=== PATIENT | female | born 1970 | race Caucasian/White ===

== ENCOUNTER 2021-09-08 12:10 | Emergency (ER) | payer OTHER, SELFPAY ==
--- OUTSIDE RECORDS SUMMARY | 2021-09-08 12:12 | XMS REPORT | Continuity of Care Document ---
:1970 Author Organization [facility] t Address [address] [place] [address] [address]. [address] [place] [address] Care Team Providers Name Role Phone Unavailable Unavailable Unavailable Problems This patient has no known problems. Allergies, Adverse Reactions, Alerts This patient has no known allergies or adverse reactions. Medications This patient has no known medications. Procedures This patient has no known procedures. Encounters Start End Encounter Admission Attending Care Care Encounter Source Date/Time Date/Time Type Type Clinicians Facility Department ID 2021-09-05 2021-09-05 Outpatient [facility] [id number] 00:00:00 00:00:[address] Results This patient has no known results.
[2021-09-08] MEDS ORDERED: dexAMETHasone 10 MG/ML VIAL ONE (16:33)
[2021-09-08] MEDS ORDERED: ACETAMINOPHEN 500 MG TAB ONE (16:33)
[2021-09-08] MEDS ORDERED: BEBTELOVIMAB 175 MG/2 ML VIAL IV ONE (16:45)
--- NOTE | 2021-09-08 17:25 | ER ---
Nurse's Notes [facility] Name: Padmini Leon Age: 51 yrs Sex: Female : 1970 Arrival Date: 09/08/2021 Time: 12:14 Bed 15 Private MD: Diagnosis: SARS-associated coronavirus as the cause of diseases classified elsewhere Presentation: 09/08 14:34 Chief complaint: Patient states: Tested COVID POSITIVE x 3 days ago; cough, congestion, vg1 sore throat; was seen by PCP and was told to come to ED for antibodies . Coronavirus screen: Vaccine status: Patient reports being unvaccinated. Client denies travel out of the [place] in the last 14 days. Ebola Screen: Patient denies exposure to infectious person. Patient denies travel to an Ebola-affected area in the 21 days before illness onset. Initial Sepsis Screen: Does the patient meet any 2 criteria? No. Patient's initial sepsis screen is negative. Does the patient have a suspected source of infection? No. Patient's initial sepsis screen is negative. Risk Assessment: Do you want to hurt yourself or someone else? Patient reports no desire to harm self or others. Onset of symptoms was September 05, 2021. 14:34 Method Of Arrival: Ambulatory vg1 14:34 Acuity: BARTOLO 4 vg1 Triage Assessment: 14:35 General: Appears in no apparent distress. uncomfortable, Behavior is calm, cooperative. vg1 Pain: Complains of pain in throat Pain currently is 5 out of 10 on a pain scale. Respiratory: Airway is patent Respiratory effort is even, unlabored. 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 - Social history:: Smoking status: Patient denies any tobacco usage or history of. Screenin:30 Abuse screen: Denies threats or abuse. Nutritional screening: No deficits noted. jb4 Tuberculosis screening: No symptoms or risk factors identified. Fall Risk None identified. Assessment: 15:30 General: Appears in no apparent distress. comfortable, Behavior is calm, cooperative, jb4 appropriate for age. Pain: Denies pain. Neuro: Level of Consciousness is awake, alert, obeys commands, Oriented to person, place, time, situation. Cardiovascular: Patient's skin is warm and dry. Respiratory: Airway is patent Respiratory effort is even, unlabored, Respiratory pattern is regular, symmetrical. GI: No signs and/or symptoms were reported involving the gastrointestinal system. : No signs and/or symptoms were reported regarding the genitourinary system. EENT: No signs and/or symptoms were reported regarding the EENT system. Derm: Skin is intact, Skin is pink, warm \T\ dry. 15:30 Musculoskeletal: Circulation, motion, and sensation intact. Range of motion: intact in jb4 all extremities. 17:22 Reassessment: Patient appears in no apparent distress at this time. Patient and/or jb4 family updated on plan of care and expected duration. Pain level reassessed. Patient is alert, oriented x 3, equal unlabored respirations, skin warm/dry/pink. 17:46 Reassessment: D/c pending observation after Antibody injection. jb4 18:26 Reassessment: Patient appears in no apparent distress at this time. Patient and/or jb4 family updated on plan of care and expected duration. Pain level reassessed. Patient is alert, oriented x 3, equal unlabored respirations, skin warm/dry/pink. Vital Signs: 14:34 BP 105 / 79; Pulse 82; Resp 16; Temp 99.3(TE); Pulse Ox 100% ; Weight 65.77 kg; Height vg1 5 ft. 6 in. (167.64 cm); Pain 5/10; 14:34 Body Mass Index 23.40 (65.77 kg, 167.64 cm) vg1 ED Course: 12:14 Patient arrived in ED. as 12:58 Boni Ho PA is PHCP. cp 12:58 Chris Garibay MD is Attending Physician. cp 14:35 Triage completed. vg1 14:35 Arm band placed on. vg1 14:50 Patient has correct armband on for positive identification. Bed in low position. Call jb4 light in reach. Side rails up X 1. 15:50 Inserted saline lock: 20 gauge in right antecubital area, using aseptic technique. jb4 15:56 [place], Jarad, RN is Primary Nurse. jb4 18:26 No provider procedures requiring assistance completed. IV discontinued, intact, jb4 bleeding controlled, No redness/swelling at site. Pressure dressing applied. Administered Medications: 16:39 Drug: Decadron - Dexamethasone 10 mg Route: IVP; Site: right antecubital; jb4 17:17 Follow up: Response: No adverse reaction jb4 16:39 Drug: Tylenol 1000 mg Route: PO; jb4 17:17 Follow up: Response: No adverse reaction jb4 17:16 Drug: bebtelovimab 175 mg Route: IV; Rate: calculated rate; Site: right antecubital; jb4 17:16 Follow up: IV Status: Completed infusion jb4 Outcome: 17:24 Discharge ordered by MD. cp 18:26 Discharged to home ambulatory, with family. jb4 18:26 Condition: stable 18:26 Discharge instructions given to patient, Instructed on discharge instructions, follow up and referral plans. Demonstrated understanding of instructions, follow-up care. 18:26 Patient left the ED. jb4 Signatures: Barbara Ortiz Corey, PA PA cp Jarad Mireles, RN RN jb4 Sujey Schultz RN RN vg1 Corrections: (The following items were deleted from the chart) 17:22 14:00 General: Appears in no apparent distress. comfortable, Behavior is calm, jb4 cooperative, appropriate for age, jb4 17: 14:00 Pain: Denies pain. jb4 jb4 17: 14:00 Neuro: Level of Consciousness is awake, alert, obeys commands, Oriented to jb4 person, place, time, situation, jb4 17: 14:00 Cardiovascular: Patient's skin is warm and dry. jb4 jb4 17: 14:00 Respiratory: Airway is patent Respiratory effort is even, unlabored, Respiratory jb4 pattern is regular, symmetrical, jb4 17: 14:00 GI: No signs and/or symptoms were reported involving the gastrointestinal system. jb4 jb4 17: 14:00 : No signs and/or symptoms were reported regarding the genitourinary system. [id number] 17:22 14:00 EENT: No signs and/or symptoms were reported regarding the EENT system. jb4 jb4 17:22 14:00 Derm: Skin is intact, Skin is pink, warm \T\ dry. jb4 jb4 : 14:00 Musculoskeletal: Circulation, motion, and sensation intact. Range of motion: jb4 intact in all extremities, jb4 14:50 General: Appears in no apparent distress. comfortable, Behavior is calm, jb4 cooperative, appropriate for age, jb4 14:50 Pain: Denies pain. jb4 jb4 : 14:50 Neuro: Level of Consciousness is awake, alert, obeys commands, Oriented to jb4 person, place, time, situation, jb4 : 14:50 Cardiovascular: Patient's skin is warm and dry. jb4 jb4 : 14:50 Respiratory: Airway is patent Respiratory effort is even, unlabored, Respiratory jb4 pattern is regular, symmetrical, jb4 : 14:50 GI: No signs and/or symptoms were reported involving the gastrointestinal system. jb4 jb4 14:50 : No signs and/or symptoms were reported regarding the genitourinary system. jb4jb4 : 14:50 EENT: No signs and/or symptoms were reported regarding the EENT system. jb4 jb4 : 14:50 Derm: Skin is intact, Skin is pink, warm \T\ dry. jb4 jb4 : 14:50 Musculoskeletal: Circulation, motion, and sensation intact. Range of motion: jb4 intact in all extremities, jb4 14:50 Abuse screen: Denies threats or abuse. jb4 jb4 : 14:50 Nutritional screening: No deficits noted. jb4 jb4 : 14:50 Tuberculosis screening: No symptoms or risk factors identified. jb4 jb4 14:50 Fall Risk None identified. jb4 jb4 17: 14:50 Inserted saline lock: 20 gauge in right antecubital area, using aseptic jb4 technique. jb4
--- NOTE | 2021-09-08 17:25 | EDPHYS ---
Physician Documentation [facility] Name: Padmini Leon Age: 51 yrs Sex: Female : 1970 Arrival Date: 09/08/2021 Time: 12:14 Bed 15 Private MD: ED Physician Chris Garibay HPI: 09/08 16:05 This 51 yrs old Female presents to ER via Ambulatory with complaints of Cough. cp 16:05 The patient or guardian reports cough, that is constant. Onset: The symptoms/episode cp began/occurred 3 day(s) ago. Associated signs and symptoms: Pertinent negatives: chest pain, diarrhea, fever, vomiting. 16:05 Patient reports she recently tested positive for COVID-19 and was referred to ED by DR giorgi Toussaint to receive IV antibodies. 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 - Social history:: Smoking status: Patient denies any tobacco usage or history of. ROS: 16:10 Constitutional: Negative for body aches, chills, fever, poor PO intake. cp 16:10 Eyes: Negative for injury, pain, redness, and discharge. cp 16:10 ENT: Negative for drainage from ear(s), ear pain, sore throat, difficulty swallowing, difficulty handling secretions. 16:10 Cardiovascular: Negative for chest pain, edema, palpitations. 16:10 Respiratory: Positive for cough, "sounds productive", shortness of breath, on exertion. Negative for wheezing. 16:10 Abdomen/GI: Negative for abdominal pain, nausea, vomiting, and diarrhea. 16:10 Back: Negative for radiated pain. 16:10 Neuro: Negative for altered mental status, headache, syncope, weakness. 16:10 All other systems are negative. Exam: 16:15 Constitutional: The patient appears in no acute distress, alert, awake, cp non-diaphoretic, non-toxic, well developed, well nourished. 16:15 Head/Face: Normocephalic, atraumatic. cp 16:15 Eyes: Periorbital structures: appear normal, Conjunctiva: normal, no exudate, no injection, Sclera: no appreciated abnormality, Lids and lashes: appear normal, bilaterally. 16:15 ENT: External ear(s): are unremarkable, Nose: is normal, Mouth: Lips: moist, Oral mucosa: pink and intact, moist, Posterior pharynx: Airway: no evidence of obstruction, patent. 16:15 Neck: ROM/movement: is normal, is supple, without pain, no range of motions limitations. 16:15 Chest/axilla: Inspection: normal. 16:15 Cardiovascular: Rate: normal, Rhythm: regular, Edema: is not appreciated, JVD: is not appreciated. 16:15 Respiratory: the patient does not display signs of respiratory distress, Respirations: normal, no use of accessory muscles, no retractions, labored breathing, is not present, Breath sounds: bronchial sounds, that are mild, are heard diffusely, decreased breath sounds, are not appreciated, stridor, is not appreciated, + upper airway congestion. wheezing: is not appreciated. 16:15 Abdomen/GI: Exam negative for discomfort, distension, guarding, Inspection: abdomen appears normal. 16:15 Back: pain, is absent, ROM is normal. 16:15 Neuro: Orientation: to person, place \\T\\ time. Mentation: is normal, Motor: moves all fours, strength is normal, Gait: is steady, at a normal pace, without difficulty. Vital Signs: 14:34 BP 105 / 79; Pulse 82; Resp 16; Temp 99.3(TE); Pulse Ox 100% ; Weight 65.77 kg; Height vg1 5 ft. 6 in. (167.64 cm); Pain 5/10; 14:34 Body Mass Index 23.40 (65.77 kg, 167.64 cm) vg1 MDM: 15:25 Patient medically screened. cp 16:06 ED course: obtained verbal consent from patient to order Bebtelovimab antibodies. cp Patient reports symptoms started 3 days ago. Explained Bebtelovimab is emergency use authorized by FDA for treatment of COVID-19, an investigational drug and currently not approved for any indication. Patient gives verbal consent. 17:24 Data reviewed: vital signs, nurses notes. cp 17:24 Differential diagnosis: bronchitis, flu, URI, pneumonia. Counseling: I had a detailed cp discussion with the patient and/or guardian regarding: the historical points, exam findings, and any diagnostic results supporting the discharge/admit diagnosis, the need for outpatient follow up, a family practitioner, to return to the emergency department if symptoms worsen or persist or if there are any questions or concerns that arise at home. Administered Medications: 16:39 Drug: Decadron - Dexamethasone 10 mg Route: IVP; Site: right antecubital; jb4 17:17 Follow up: Response: No adverse reaction jb4 16:39 Drug: Tylenol 1000 mg Route: PO; jb4 17:17 Follow up: Response: No adverse reaction jb4 17:16 Drug: bebtelovimab 175 mg Route: IV; Rate: calculated rate; Site: right antecubital; jb4 17:16 Follow up: IV Status: Completed infusion jb4 Disposition Summary: 09/08/21 17:24 Discharge Ordered Location: Home cp Problem: new cp Symptoms: have improved cp Condition: Stable cp Diagnosis - SARS-associated coronavirus as the cause of diseases classified elsewhere cp Followup: cp - With: Private Physician - When: 1 - 2 days - Reason: Recheck today's complaints Discharge Instructions: - Discharge Summary Sheet cp - Aspirin and Your Heart cp - COVID-19 cp - Things to Know about the COVID-19 Pandemic - [facility] cp - 10 Things You Can Do to Manage Your COVID-19 Symptoms at Home - [facility] cp - COVID-19: Quarantine vs. Isolation - [facility] cp - Prevent the Spread of COVID-19 if You Are Sick - [facility] cp Forms: - Medication Reconciliation Form cp - Thank You Letter cp - Antibiotic Education cp - Prescription Opioid Use cp Signatures: Boni Ho PA PA cp Jarad Mireles, RN RN jb4 Sujey Schultz RN RN vg1
[2021-09-09 12:17] VITALS: BP 105/79; TEMP 99.3; O2SAT 100
== END 2021-09-08 18:26 | disposition home or self-care (01) ==
LOC: ER 12:10
DX: U07.1 COVID-19 (principal); Z88.5 Allergy status to narcotic agent
CPT/HCPCS: 99283; J1100

== ENCOUNTER 2022-05-28 10:58 | Observation (INO) | payer BC, SELFPAY ==
--- OUTSIDE RECORDS SUMMARY | 2022-05-28 11:01 | XMS REPORT | Continuity of Care Document ---
:1970 Author Organization [facility] t Address [address] [place] [address] Care Team Providers Name Role Phone Asked, No Pcp Primary Care Physician Unavailable Jorgito MANUFACTURING ENGINEER, Raine Linda Attending Clinician [phone] Problems This patient has no known problems. Allergies, Adverse Reactions, Alerts Allergy Allergy Status Severity Reaction(s) Onset Inactive Treating Comm ents Source Name Type Date Date Clinician Ana Lozada Active GI Violent Method i ty to Intolerance 5-[address] adverse 00:00: Hospita reaction 00 l s to drug Social History Social Habit Start Date Stop Date Quantity Comments Source Sex Assigned At [birth year] [facility] 00:00:00 00:00:00 Smoking Status Start Date Stop Date Source Tobacco smoking consumption unknown [facility] Medications Ordered Filled Start Stop Current Ordering Indication Dosage Frequency Signature Comments Components Source Medication Medication Date Date Medication? Clinician (SIG) Name Name fluticasone 2021- No [id number] 100ug QD 2 sprays [facility] propionate 09-05 ([address] (FLONASE) 00:00: 04:59 total) by Ho spita 50 00 :00 Each Nare l mcg/actuati route on nasal daily for spray 30 days. benzonatate 2021- No [id number] 200mg [id number] Take 1 [facility] (TESSALON) 09-05- [id number] capsule st 200 MG 00:00: 04:59 3D (200 mg Hospita capsule 00 :00 total) by l mouth 3 (three) times a day as needed for cough for up to 10 days. amoxicillin Yes 1{tbl} Q.5D Take 1 Me thodi -pot 5-[address] clavulanate 00:00: mouth 2 Hos jean (AUGMENTIN) 00 (two) l 875-125 mg times a per tablet day. Vital Signs Vital Name Observation Time Observation Value Comments Source Body weight 2021-09-05 18:40:00 63.504 kg [facility] BMI 2021-09-05 18:40:00 22.60 kg/m2 [facility] Body height 2021-09-05 18:40:00 167.6 cm [facility] Procedures This patient has no known procedures. Plan of Care Planned Activity Planned Date Details Comments Source Future Scheduled 2022-04-16 COVID-19 VACCINE (#1) [facility] Test 18:20:23 [code = COVID-19 VACCINE (#1)] Future Scheduled 2022-04-16 Hepatitis C screening [facility] Test 18:20:23 (procedure) [code = 702729974] Future Scheduled 2022-04-16 Screening for [facility] Test 18:20:23 malignant neoplasm of cervix (procedure) [code = 990417668] Future Scheduled 2022-04-16 BREAST CANCER [facility] Test 18:20:23 SCREENING [code = BREAST CANCER SCREENING] Future Scheduled 2022-04-16 COLONOSCOPY SCREENING [facility] Test 18:20:23 [code = COLONOSCOPY SCREENING] Future Scheduled 2022-04-16 SHINGLES VACCINES ([address] [facility] Test 18:20:23 of 2) [code = SHINGLES VACCINES (1 of 2)] Future Scheduled 2022-04-[address] [facility] Test 18:20:23 [code = INFLUENZA VACCINE] Encounters Start End Encounter Admission Attending Care Care Encounter Source Date/Time Date/Time Type Type Clinicians Facility Department ID 2021-09-05 2021-09-05 Virtual Jorgito, [id number] [facility] 13:30:00 14:09:52 Urgent Raine [id number] [facility] [id number] Hospit [id number] .[id number] 2021-09-05 2021-09-05 Outpatient [facility] [id number] 00:00:00 00:00:[address] Results This patient has no known results.
--- NOTE | 2022-05-28 11:37 | RAD REPORT ---
EXAM DESCRIPTION: RAD - Chest Single View - 05/28/2022 11:31 am CLINICAL HISTORY: CHEST PAIN Chest pain. COMPARISON: No comparisons FINDINGS: Portable technique limits examination quality. The lungs are grossly clear. The heart is normal in size. No displaced fractures. IMPRESSION: No acute intrathoracic process suspected.
[2022-05-28 11:57] LABS: Absolute Lymphocytes (CBC) 1.4 K/uL (0.7-4.9); Hematocrit 40.9 % (36.0-45.0); Lymphocytes % 32.4 % (15.3-44.8); MCV 93.5 fL (80-100); RBC Red Blood Cell Count 4.38 M/uL (3.86-4.86)
[2022-05-28 12:18] LABS: Albumin 4.1 g/dL (3.4-5.0); Bilirubin Direct 0.1 mg/dL (0-0.2); Bilirubin Total 0.4 mg/dL (0.2-1.0); Potassium 3.7 mmol/L (3.5-5.1); Protein, Total 7.5 g/dL (6.4-8.2); Troponin High Sensitivity 3.8 pg/mL (<58.9)
--- NOTE | 2022-05-28 13:24 | ER ---
Nurse's Notes [facility] Name: Padmini Leon Age: 52 yrs Sex: Female : 1970 Arrival Date: 05/28/2022 Time: 10:59 Bed 17 Private MD: Miguel Toussaint Diagnosis: Chest pain, unspecified Presentation: 05/28 11:18 Chief complaint: Patient states: she has been having intermittent periods where her ap3 heart feels heavy, palpitations, chest tightness and a burning feeling in her chest that goes through to her back. Patient states these feelings of been going on intermittently for a week to 10 days. Coronavirus screen: At this time, the client does not indicate any symptoms associated with coronavirus-19. Ebola Screen: No symptoms or risks identified at this time. Initial Sepsis Screen: Does the patient meet any 2 criteria? No. Patient's initial sepsis screen is negative. Does the patient have a suspected source of infection? No. Patient's initial sepsis screen is negative. Risk Assessment: Do you want to hurt yourself or someone else? Patient reports no desire to harm self or others. Onset of symptoms was May 18, 2022. 11:18 Method Of Arrival: Ambulatory ap3 11:18 Acuity: BARTOLO 3 ap3 Triage Assessment: 11:22 General: Appears in no apparent distress. Behavior is calm, cooperative. Pain: Denies ap3 pain. Cardiovascular: Reports palpitations, since intermittently for the last 7-10 days. Respiratory: Airway is patent Respiratory effort is even, unlabored, Respiratory pattern is regular, symmetrical. 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 Flu vaccine is not up to date. - Social history:: Smoking status: Patient denies any tobacco usage or history of. - Family history:: not pertinent. - Hospitalizations: : No recent hospitalization is reported. Screenin:[address] [facility] ED Fall Risk Assessment (Adult) History of falling in the last 3 months, ap3 including since admission No falls in past 3 months (0 pts). Abuse screen: Denies threats or abuse. Nutritional screening: No deficits noted. Tuberculosis screening: No symptoms or risk factors identified. Assessment: 11:42 General: Appears in no apparent distress. comfortable, Behavior is calm, cooperative, ld1 appropriate for age. Pain: Complains of pain in chest Pain does not radiate. Pain currently is 3 out of 10 on a pain scale. at worst was 8 out of 10 on a pain scale. Quality of pain is described as throbbing, Is intermittent. Neuro: Level of Consciousness is awake, alert, obeys commands, Oriented to person, place, time, situation. Cardiovascular: Capillary refill < 3 seconds Patient's skin is warm and dry. Cardiovascular: Reports chest pain, palpitations. Respiratory: Airway is patent Respiratory effort is even, unlabored. GI: Abdomen is flat, non-distended. : No signs and/or symptoms were reported regarding the genitourinary system. EENT: No signs and/or symptoms were reported regarding the EENT system. Derm: No signs and/or symptoms reported regarding the dermatologic system. Musculoskeletal: No signs and/or symptoms reported regarding the musculoskeletal system. Vital Signs: 11:18 BP 144 / 84; Pulse 81; Resp 17; Temp 98.6(O); Pulse Ox 100% ; Weight 66.68 kg; Height 5 ap3 ft. 6 in. (167.64 cm); 11:42 BP 114 / 71; Pulse 70; Resp 19; Pulse Ox 100% on R/A; Pain 0/10; ld1 11:51 BP 127 / 62; Pulse 69; Resp 18; Pulse Ox 100% on R/A; Pain 0/10; ld1 12:52 BP 118 / 73; Pulse 68; Resp 14; Pulse Ox 100% on R/A; ld1 15:11 BP 116 / 76; Pulse 68; Resp 19; Pulse Ox 100% on R/A; ld1 17:12 BP 122 / 76; Pulse 68; Resp 14; Pulse Ox 100% on R/A; ld1 17:59 BP 125 / 76; Pulse 92; Resp 18; Pulse Ox 100% on R/A; ld1 11:18 Body Mass Index 23.73 (66.68 kg, 167.64 cm) ap3 ED Course: 10:59 Patient arrived in ED. am2 10:59 Toussaint, Miguel, DO is Private Physician. am2 10:59 Abelardo Bird MD is Attending Physician. rn 11:10 Yolanda Reese, SEGUN is Primary Nurse. ld1 11:22 Triage completed. ap3 11:23 Arm band placed on right wrist. ap3 11:23 Patient has correct armband on for positive identification. Bed in low position. Call ap3 light in reach. Side rails up X 1. cafeteria monitor on. Pulse ox on. NIBP on. Door closed. Noise minimized. 11:23 Patient maintains SpO2 saturation greater than 95% on room air. ap3 11:32 XRAY Chest (1 view) In Process Unspecified. EDMS 11:51 Lipase Sent. em1 11:51 Basic Metabolic Panel Sent. em1 11:51 CBC with Diff Sent. em1 11:51 D-Dimer Sent. em1 11:51 LFT's Sent. em1 11:51 NT PRO-BNP Sent. em1 11:51 Troponin HS Sent. em1 11:51 Initial lab(s) drawn, by in, sent to lab. em1 11:51 Inserted saline lock: 22 gauge in right forearm, using aseptic technique. Blood em1 collected. 13:23 Karson Brunson MD is Hospitalizing Provider. rn 13:38 SARS RAPID Sent. ld1 13:42 CT Aorta for Dissection In Process Unspecified. EDMS 19:16 Primary Nurse role handed off by Yolanda Reese, RN mw2 19:43 No provider procedures requiring assistance completed. Patient admitted, IV remains in lg3 place. intact, No redness/swelling at site. Administered Medications: No medications were administered Medication: 11:24 VIS not applicable for this client. ap3 Outcome: 13:24 Decision to Hospitalize by Provider. rn 19:43 Admitted to Med/surg accompanied by tech, via wheelchair, room 423, Report called [facility] [place] 19:43 Condition: stable 19:43 Instructed on the need for admit. 20:08 Patient left the ED. bb Signatures: Dispatcher [employer] EDMS Ashley Kim, SEGUN RN bb Abelardo Brid MD MD rn Martinez, Eric em1 Annamarie Baldwin am2 Annamarie Vela RN RN ap3 Sky Richter mw2 Wendy William RN RN 3 Yolanda Reese, RN RN ld1 Corrections: (The following items were deleted from the chart) : 11:51 Initial lab(s) drawn, by me, sent to lab. em1 em1 : 11:51 Inserted saline lock: 20 gauge in right forearm, using aseptic technique. Blood em1 collected. em1
--- NOTE | 2022-05-28 13:24 | EDPHYS ---
Physician Documentation [facility] Name: Padmini Leon Age: 52 yrs Sex: Female : 1970 Arrival Date: 05/28/2022 Time: 10:59 Bed 17 Private MD: Miguel Toussaint ED Physician Abelardo Bird HPI: 05/28 12:38 This 52 yrs old Female presents to ER via Ambulatory with complaints of Chest Pain. rn 12:38 The patient or guardian reports chest pain that is located primarily in the substernal rn area. Onset: 2 week(s) ago. The pain radiates to back. Associated signs and symptoms: Pertinent positives: palpitations, Pertinent negatives: abdominal pain, diaphoresis, shortness of breath, syncope, vomiting. The chest pain is described as a heaviness. Duration: The patient or guardian reports multiple episodes, that are intermittent. Modifying factors: The symptoms are alleviated by nothing. the symptoms are aggravated by laying supine and with exertion. Severity of pain: At its worst the pain was mild in the emergency department the pain has improved. The patient has not experienced similar symptoms in the past. The patient has not recently seen a physician. 12:38 Pt reports recently put on abx for "sinus infection". For 2 weeks has been experiencing rn intermittent chest pain, worse when laying down at night and with exertion, no hx of DVT/PE, no cough, no sob, no trauma, no abd pain. No famhx of cardiac problems at her age. Has never had a cardiac evaluation. + intermittent palpitations as well. . [employer]: 11:23 LMP N/A - Hysterectomy ap3 Historical: - Allergies: 11:22 Codeine; ap3 - Home Meds: 11:22 None [Active]; ap3 - PSHx: 11:22 hysterectomy; ap3 - Immunization history:: Client reports having NOT received the Covid vaccine. Flu vaccine is not up to date. - Social history:: Smoking status: Patient denies any tobacco usage or history of. - Family history:: not pertinent. - Hospitalizations: : No recent hospitalization is reported. ROS: 12:38 Constitutional: Negative for fever, chills, and weight loss, Eyes: Negative for injury, rn pain, redness, and discharge, Neck: Negative for injury, pain, and swelling, Cardiovascular: Negative for edema Respiratory: Negative for shortness of breath, cough, wheezing, and pleuritic chest pain, Abdomen/GI: Negative for abdominal pain, nausea, vomiting, diarrhea, and constipation, Back: Negative for injury MS/Extremity: Negative for injury and deformity, Skin: Negative for injury, rash, and discoloration, Neuro: Negative for headache, weakness, numbness, tingling, and seizure. Exam: 12:38 Constitutional: This is a well developed, well nourished patient who is awake, alert, rn and in no acute distress. Ambulatory to room without difficulty or requiring assistance. Head/Face: Normocephalic, atraumatic. Cardiovascular: Regular rate and rhythm. No pulse deficits. Respiratory: Clear bilateral breath sounds. No increased work of breathing, no retractions or nasal flaring. Abdomen/GI: Soft, non-tender Skin: Warm, dry MS/ Extremity: Pulses equal, no cyanosis. NO edema. Equal circumference. Neuro: Awake and alert, GCS 15. Normal gait. 16:03 ECG was reviewed by the Attending Physician. rn Vital Signs: 11:18 BP 144 / 84; Pulse 81; Resp 17; Temp 98.6(O); Pulse Ox 100% ; Weight 66.68 kg; Height 5 ap3 ft. 6 in. (167.64 cm); 11:42 BP 114 / 71; Pulse 70; Resp 19; Pulse Ox 100% on R/A; Pain 0/10; ld1 11:51 BP 127 / 62; Pulse 69; Resp 18; Pulse Ox 100% on R/A; Pain 0/10; ld1 12:52 BP 118 / 73; Pulse 68; Resp 14; Pulse Ox 100% on R/A; ld1 15:11 BP 116 / 76; Pulse 68; Resp 19; Pulse Ox 100% on R/A; ld1 17:12 BP 122 / 76; Pulse 68; Resp 14; Pulse Ox 100% on R/A; ld1 17:59 BP 125 / 76; Pulse 92; Resp 18; Pulse Ox 100% on R/A; ld1 11:18 Body Mass Index 23.73 (66.68 kg, 167.64 cm) ap3 MDM: 10:59 Patient medically screened. rn 13:19 Differential diagnosis: acute myocardial infarction, acute pericarditis, anxiety, rn coronary artery disease chest wall pain, costochondritis, esophagitis, gastroesophageal reflux disease (GERD), pericarditis, pleurisy, pneumonia, pneumothorax, pulmonary embolus, stable angina, unstable angina. 13:21 The patient was given aspirin in the Emergency Department. Data reviewed: vital signs, rn nurses notes, lab test result(s), EKG, radiologic studies, plain films, and as a result, I will admit patient. 13:22 Management of patient was discussed with the following: Hospitalist: Case discussed rn with hospitalist service, will admit for further cardiac w/u. . Independent interpretation of the following test(s) in the Emergency Department EKG: See my EKG interpretation above X-Ray: My interpretation is CXR neg for pneumothorax or pneumonia. Counseling: I had a detailed discussion with the patient and/or guardian regarding: the historical points, exam findings, and any diagnostic results supporting the discharge/admit diagnosis, lab results, radiology results, the need for further work-up and treatment in the hospital. ED course: Pt had another episode of chest tightness here, worse with exertion, will admit to hospitalist service for cardiology eval/echo/stress. . 05/28 11:17 Order name: Basic Metabolic Panel; Complete Time: 13:04 05/28 11:17 Order name: CBC with Diff; Complete Time: 12:13 rn 05/28 11:17 Order name: D-Dimer; Complete Time: 12:13 rn 05/28 11:17 Order name: LFT's; Complete Time: 13:04 rn 05/28 11:17 Order name: NT PRO-BNP; Complete Time: 13:04 rn 05/28 11:17 Order name: Troponin HS; Complete Time: 13:04 rn 05/28 11:17 Order name: Lipase; Complete Time: 13:04 rn 05/28 11:17 Order name: COVID-19/FLU A+B rn 05/28 13:31 Order name: SARS RAPID; Complete Time: 15:45 ld1 05/28 15:52 Order name: Hemoglobin A1c; Complete Time: 19:45 EDMS 05/28 15:52 Order name: Lipid Profile; Complete Time: 19:45 EDMS 05/28 15:56 Order name: Troponin High Sensitivity EDNJ 05/28 15:57 Order name: Troponin High Sensitivity EDNJ 05/28 15:57 Order name: Troponin High Sensitivity EDNJ 05/28 11:17 Order name: XRAY Chest (1 view); Complete Time: 11:53 rn 05/28 11:17 Order name: EKG; Complete Time: 11:18 rn 05/28 11:17 Order name: Cardiac monitoring; Complete Time: 11:19 rn 05/28 11:17 Order name: EKG - Nurse/Tech; Complete Time: 11:26 rn 05/28 13:21 Order name: CT Aorta for Dissection; Complete Time: 14:08 rn 05/28 15:52 Order name: Heart Healthy EDMS 05/28 15:54 Order name: Echo with Doppler EDMS 05/28 15:57 Order name: Magnesium; Complete Time: 19:45 EDNJ 05/28 15:57 Order name: Phosphorus; Complete Time: 19:45 EDNJ 05/28 15:57 Order name: T4 Free; Complete Time: 19:45 EDMS 05/28 15:57 Order name: Thyroid Stimulating Hormone; Complete Time: 19:45 EDNJ 05/28 15:57 Order name: Urinalysis EDNJ 05/28 15:57 Order name: Basic Metabolic Panel EDNJ 05/28 15:57 Order name: Basic Metabolic Panel EDNJ 05/28 15:57 Order name: CBC with Automated Diff EDMS 05/28 15:57 Order name: CBC with Automated Diff EDNJ 05/28 11:17 Order name: IV Saline Lock; Complete Time: 11:51 rn 05/28 11:17 Order name: Labs collected and sent; Complete Time: 11:51 rn 05/28 11:17 Order name: O2 Per Protocol; Complete Time: 11:19 rn 05/28 11:17 Order name: O2 Sat Monitoring; Complete Time: 11:19 rn EC:03 Rate is 67 beats/min. Rhythm is regular. QRS [place] is Normal. [place] interval is normal. QRS rn interval is normal. QT interval is normal. No Q waves. T waves are Normal. No ST changes noted. Clinical impression: Normal ECG. Interpreted by me. Reviewed by me. Administered Medications: No medications were administered Disposition Summary: 05/28/22 13:24 Hospitalization Ordered Hospitalization Status: Observation rn Provider: Karson Brunson rn Location: Telemetry/MedSurg (observation) rn Condition: Stable rn Problem: new rn Symptoms: have improved rn Bed/Room Type: Standard rn Room Assignment: 423(05/28/22 18:34) bd Diagnosis - Chest pain, unspecified rn Forms: - Medication Reconciliation Form rn - SBAR form rn Signatures: Dispatcher [employer] Mya Romero Joel, PA PA jmm Nieto, Roman, MD MD rn Attema, Lee, BLOCKER METAL BASE-C BLOCKER METAL BASE-Cla1 Annamarie Veal RN RN ap3 Corrections: (The following items were deleted from the chart) 18:34 13:24 rn bd
--- NOTE | 2022-05-28 14:04 | RAD REPORT ---
EXAM DESCRIPTION: CT - Angio Aorta For Dissection - 05/28/2022 1:41 pm CLINICAL HISTORY: . Chest and abd pain COMPARISON: None TECHNIQUE: Computed tomography angiography of the chest, abdomen pelvis were obtained. 100 cc Isovue 370 was administered intravenously. Coronal and sagittal reconstruction were performed. MIP 3D reconstruction was performed All CT scans are performed using dose optimization technique as appropriate and may include automated exposure control or mA/KV adjustment according to patient size. FINDINGS: An aortic dissection is not seen. An aortic aneurysm is not displayed. The celiac, SMA and ELAYNE are patent . A lung consolidation is not present. A pericardial effusion is not seen. A pleural effusion is not no riki. A 1.5 centimeter low-density area right lobe liver. Spleen, pancreas,adrenals and kidneys demonstrate no significant abnormality. There no evidence diverticulitis. Normal appendix IMPRESSION: Negative for an aortic dissection. 1.5 centimeter low-density liver may represent focal area of fatty infiltration. It is recommended th at the patient have a followup ultrasound in 3 months for re-evaluation
[2022-05-28 14:31] LABS: SARS-CoV-2 Antigen Rapid Res Negative (Negative)
[2022-05-28] MEDS ORDERED: ACETAMINOPHEN 325 MG TABLET PO PRN (15:46)
[2022-05-28] MEDS ORDERED: HYDROCODONE/APAP 5/325 MG TAB PO PRN (15:46)
[2022-05-28] MEDS ORDERED: ONDANSETRON 4 MG/2 ML VIAL IV PRN (15:54)
--- NOTE | 2022-05-28 15:56 | P.HP ---
Certification for Inpatient Patient admitted to: Observation With expected LOS: <2 Midnights Patient will require the following post-hospital care: None Practitioner: I am a practitioner with admitting privileges, knowledge of patient current condition, hospital course, and medical plan of care. Services: Services provided to patient in accordance with Admission requirements found in Title 42 Section 412.3 of the Code of Federal Regulations <Fidencio Gibbs - Last Filed: 05/28/22 17:16> Patient History Date of Service: 05/28/22 Reason for admission: Chest pain History of Present Illness: Patient is a 52-year-old female with no known past medical history who presents with complaint of chest pain located in the substernal chest that has been ongoing for the past 2 weeks. Patient reported that chest pain radiates to her back. Patient rated pain as 6/10 in severity and described pain as pressure\ tightness in quality. Patient reported associated signs and symptoms of palpitations, shortness of breath, night sweats and headache. Patient denies any other signs and symptoms. Symptoms are aggravated or relieved by nothing. Of note, patient reported that she was treated for a sinus infection with antibiotics recently. Patient reported that she called her PCP who instructed her to go to the ER. Patient decided to present to the hospital as directed by her PCP. Home medications list reviewed: Yes - Past Medical/Surgical History Diabetic: No Past Medical History: Reviewed- Non-Contributory -: Hysterectomy. - Family History Father -: Cancer - Social History Smoking Status: Never smoker Alcohol use: No CD- Drugs: No Caffeine use: No Place of Residence: Home <Fidencio Gibbs - Last Filed: 05/28/22 17:16> Date of Service: 05/28/22 <Karson Brunson - Last Filed: 05/28/22 18:37> Review of Systems General: Sweats Eyes: Unremarkable ENT: Unremarkable Respiratory: Shortness of Breath Cardiovascular: Chest Pain, Palpitations Gastrointestinal: Unremarkable Genitourinary: Unremarkable Musculoskeletal: Back Pain Integumentary: Unremarkable Neurological: Other (headache) Lymphatics: Unremarkable <Fidencio Gibbs - Last Filed: 05/28/22 17:16> Physical Examination - Physical Exam General: Alert, In no apparent distress, Oriented x3, Cooperative HEENT: Atraumatic, PERRLA, Mucous membr. moist/pink, EOMI, Sclerae nonicteric Neck: Supple, 2+ carotid pulse no bruit, No LAD, Without JVD or thyroid abnormality Respiratory: Clear to auscultation bilaterally, Normal air movement Cardiovascular: No edema, Regular rate/rhythm, Normal S1 S2 Capillary refill: <2 Seconds Gastrointestinal: Normal bowel sounds, Soft and benign, Non-distended, No tenderness Musculoskeletal: No clubbing, No swelling, No contractures, No tenderness Integumentary: No rashes, No breakdown, No tenderness/swelling Neurological: Normal speech, Normal tone, Normal affect Lymphatics: No axilla or inguinal lymphadenopathy - Studies Laboratory Data (last 24 hrs) 05/28/22 11:50: WBC 4.20 L, Hgb 14.0, Hct 40.9, Plt Count 183 05/28/22 11:50: Sodium 140, Potassium 3.7, BUN 16, Creatinine 0.96, Glucose 113 H, Total Bilirubin 0.4, AST 16, ALT 16, Alkaline Phosphatase 56, Lipase 237 <Fidencio Gibbs - Last Filed: 05/28/22 17:16> - Studies Laboratory Data (last 24 hrs) 05/28/22 11:50: Phosphorus 3.0, Magnesium 2.4 05/28/22 11:50: Triglycerides 88, Cholesterol 190, HDL Cholesterol 69 H, Cholesterol/HDL Ratio 2.75 05/28/22 11:50: WBC 4.20 L, Hgb 14.0, Hct 40.9, Plt Count 183 05/28/22 11:50: Sodium 140, Potassium 3.7, BUN 16, Creatinine 0.96, Glucose 113 H, Total Bilirubin 0.4, AST 16, ALT 16, Alkaline Phosphatase 56, Lipase 237 <Karson Brunson - Last Filed: 05/28/22 18:37> Assessment and Plan - Plan --Chest pain. To rule out ACS. Will trend troponin--negative so far. Cardiology consulted. Telemetry to monitor for any significant arrhythmia. Echocardiogram pending to assess LV\valvular function and wall motion. Further management per sec reporting consultant. --CKD 2. Baseline functions unknown. We will continue to monitor renal functions. --Headache. Tylenol as needed. --Palpitations. Echocardiogram pending. Telemetry to monitor for any significant arrhythmia. Further management per sec reporting consultant. --Elevated blood pressure without diagnosis of hypertension. We will manage BP with hydralazine as needed. We will continue to monitor blood pressure levels --Acute pain. We will manage pain with current pain medication regimen. --DVT prophylaxis with Lovenox subQ. Discharge Plan: Home Plan to discharge in: 48 Hours - Advance Directives Does patient have a Living Will: No Does patient have a Durable POA for Healthcare: No - Code Status/Comfort Care Code Status Assessed: Yes Physician Review: Patient Assessed, Agree with Above Assessment and Plan Critical Care: No <Fidencio Gibbs - Last Filed: 05/28/22 17:16> Physician Review: Patient Assessed, Agree with Above Assessment and Plan <Karson Brunson - Last Filed: 05/28/22 18:37>
[2022-05-28] MEDS ORDERED: ASPIRIN 81 MG CHEWABLE TABLET PO ONE (16:11)
[2022-05-28] MEDS: ENOXAPARIN 40 MG/0.4 ML SQ SCH (17:00)
[2022-05-28 17:05] LABS: Magnesium 2.4 mg/dL (1.6-2.4); Thyroid Stimulating Hormone 1.38 uIU/mL (0.358-3.740)
[2022-05-28] MEDS ORDERED: HYDRALAZINE HCL 20 MG/ML VIAL IV PRN (17:15)
--- NOTE | 2022-05-28 21:52 | CON ---
Date of Consultation: 05/28/2022 Reason For Consultation: Chest pain. History Of Present Illness: This 52-year-old female with no past medical history presented with ches t pain, substernal. She apparently started taken Augmentin as antibiotics for some infectious proces s and since she started it, she started feeling short of breath, chest tightness, and chest pressure that radiates to the left upper extremity, not related to exertion, but gets aggravated by exertion. Currently does not have any nausea, vomiting, or diarrhea and has no cough and no resting chest pain . Past Medical History: None. Medications: None. Allergies: NO KNOWN DRUG ALLERGIES. Family History: No premature coronary artery disease or cancer. Social History: She does not smoke or drink. Does not use any drugs. Review of Systems: All systems reviewed and they were negative except for mentioned in HPI. Physical Examination: Vital Signs: Reviewed. Head And Neck: Pupils are equal, reactive to light. Intact eye movements. No JVD. No cervical lym phadenopathy. Neck is supple. Thyroid is not enlarged. Lungs: Clear to auscultation bilaterally. No rhonchi, wheezing, or crackles. No accessory muscle u se. Heart: Regular rate and rhythm. No extra sounds. Abdomen: Soft, nontender. Bowel sounds positive. No organomegaly. No masses or hernia. No rigidi ty or rebound. Extremities: No edema, clubbing, or cyanosis. Intact pulses. Skin: No rashes. Neurologic: Alert, awake, and oriented x3. No acute focal deficits appreciated. Lymph Nodes: No cervical or axillary lymphadenopathy. Investigations: Troponin first set is negative. NT-proBNP is normal. BUN 16 and creatinine 0.96. LDL cholesterol is 103. Assessment/recommendation: 1.Chest pain. First set of cardiac enzymes negative. EKG without acute specific abnormalities. Ob servation for 2 more sets of cardiac enzymes and obtain echocardiogram in the morning. If she rules out, we will plan for outpatient stress test. 2.Shortness of breath. Obtain an echo as outlined above. Further recommendations to follow dale sanchez. /MODL Voice ID: [id number] Report ID: [id number]
[2022-05-29 00:01] VITALS: BMI 25.2
[2022-05-29 05:07] LABS: Hematocrit 39.9 % (36.0-45.0); Lymphocytes % 44.6 % (15.3-44.8); MCV 94.3 fL (80-100); MPV 9.1 fL (7.6-11.3); RBC Red Blood Cell Count 4.23 M/uL (3.86-4.86)
[2022-05-29 05:20] LABS: Potassium 4.4 mmol/L (3.5-5.1)
[2022-05-29] MEDS ORDERED: INFLUENZA VACCINE (for 6+ mo) 0.5 ML DOSE IMVAC ONE (08:00)
--- NOTE | 2022-05-29 08:09 | P.DS ---
Admission Date: 05/28/22 Discharge Date: 05/29/22 Disposition: ROUTINE DISCHARGE Discharge Condition: GOOD Reason for Admission: Chest pain Consultations: 1. Cardiology Hospital Course: DIAGNOSES: # Atypical Chest Pain - suspect Musculoskeletal # Low-Density Liver Lesion - suspected Fatty Infiltration (1.5 cm) HOSPITAL COURSE: Mr. Padmini Leon is a pleasant 52 year old female with no reported past medical history who [facility] for chest pain. She was admitted to the Medicine service. Upon further evaluation, her EKG was without STEMI criteria. Her troponin trend was 3.8 -> 4.0 -> 3.9. Her chest x- ray revealed, "no acute intrathoracic process suspected." A CT dissection protocol revealed, "negative for an aortic dissection. 1.5 centimeter low- density liver may represent focal area of fatty infiltration. It is recommended that the patient have a followup ultrasound in 3 months for re-evaluation." Cardiology was consulted and she was evaluated by Dr. Phan. He has cleared her for discharge with an outpatient transthoracic echocardiogram and a cardiac stress test. On 05/29/2022, she was seen on morning rounds and deemed medically stable for discharge. She was discharged with instructions to schedule follow-up appointments with her PCP (Dr. Toussaint) and with Cardiology (Dr. Phan). She was advised to schedule a follow-up liver ultrasound with Dr. Toussaint in 3 months. She was given the opportunity to ask questions and reported no further questions. Furthermore, all questions were answered to the best of my ability. A copy of this discharge summary will be sent to the above providers to facilitate continuity of care. Today, I personally spent 20 minutes on her case, of which greater than 50% of the time was spent in patient education, counseling, and coordination of care as described above. Vital Signs/Physical Exam: Temp Pulse Resp BP Pulse Ox 97.0 F 60 16 112/53 L 95 05/29/22 04:00 05/29/22 04:00 05/29/22 04:00 05/29/22 04:00 05/29/22 04:00 General: Alert, In no apparent distress, Oriented x3 HEENT: Atraumatic, Mucous membr. moist/pink, EOMI, Sclerae nonicteric Neck: JVD not distended Respiratory: Clear to auscultation bilaterally, Normal air movement Cardiovascular: No edema, Regular rate/rhythm, Normal S1 S2, No gallops, No rubs, No murmurs Gastrointestinal: Normal bowel sounds, Soft and benign, Non-distended, No tenderness, No rebound, No guarding Musculoskeletal: No clubbing Integumentary: No rashes Neurological: Normal speech, Normal affect Laboratory Data at Discharge: WBC 4.40 K/uL (4.3-10.9) 05/29/22 04:48 Hgb 13.3 g/dL (12.0-15.0) 05/29/22 04:48 Hct 39.9 % (36.0-45.0) 05/29/22 04:48 Plt Count 179 K/uL (152-406) 05/29/22 04:48 Sodium 142 mmol/L (136-145) 05/29/22 04:48 Potassium 4.4 mmol/L (3.5-5.1) D 05/29/22 04:48 BUN 16 mg/dL (7-18) 05/29/22 04:48 Creatinine 1.04 mg/dL (0.55-1.02) H 05/29/22 04:48 Glucose 96 mg/dL (74-106) 05/29/22 04:48 Phosphorus 3.0 mg/dL (2.5-4.9) 05/28/22 11:50 Magnesium 2.4 mg/dL (1.6-2.4) 05/28/22 11:50 Total Bilirubin 0.4 mg/dL (0.2-1.0) 05/28/22 11:50 AST 16 U/L (15-37) 05/28/22 11:50 ALT 16 U/L (13-56) 05/28/22 11:50 Alkaline Phosphatase 56 U/L (45-117) 05/28/22 11:50 Triglycerides 88 mg/dL (<150) 05/28/22 11:50 Cholesterol 190 mg/dL (<200) 05/28/22 11:50 HDL Cholesterol 69 mg/dL (40-60) H 05/28/22 11:50 Cholesterol/HDL Ratio 2.75 05/28/22 11:50 Lipase 237 U/L (73-393) 05/28/22 11:50 Home Medications: Aspirin [Aspirin EC 81 MG] 81 mg PO DAILY #1 05/29/22 New Medications: Aspirin [Aspirin EC 81 MG] 81 mg PO DAILY #1 Physician Discharge Instructions: 1. Please call and schedule a follow-up appointment with your PCP (Dr. Toussaint) in 3-5 days - Please schedule a repeat liver ultrasound in 3 months 2. Please call and schedule a follow-up appointment with Cardiology (Dr. Phan) in 5-7 days - He will schedule you for an echocardiogram and an outpatient stress test Diet: AHA Activity: Ad suleman Followup: Miguel Toussaint, [Primary Care Provider] - (Call to schedule appointment.) Al Phan MD [ACTIVE - CAN ADMIT] - (Call to schedule appointment.) Time spent managing pt's care (in minutes): 20
[2022-05-29] MEDS: ENOXAPARIN 40 MG/0.4 ML SQ SCH (08:20)
[2022-05-29 09:06] VITALS: BP 101/59; TEMP 98.4
[2022-05-29 09:47] VITALS: O2SAT 96
--- NOTE | 2022-05-29 16:58 | EKG ---
Test Date: 2022-05-28 Test Time: 11:25:16 Professor Of Counseling: MEGAN MEASUREMENT RESULTS: Intervals: Rate: 67 HI: 144 QRSD: 86 QT: 388 QTc: 409 [place]: P: 64 HI: 144 QRS: 49 T: 41 INTERPRETIVE STATEMENTS: Normal sinus rhythm Normal ECG No previous ECG available for comparison Electronically Signed On 05-29-22 16:54:54 LIFE MANAGER by Al Phan
== END 2022-05-29 09:39 | disposition home or self-care (01) ==
LOC: ER 10:58 → ERHOLD 15:45 → 4TH 19:28
PROVIDERS: ADMIT Internal Medicine; ATTEND Internal Medicine
DX: R07.89 Other chest pain (principal); K76.9 Liver disease, unspecified; N18.2 Chronic kidney disease, stage 2 (mild); R51.9 Headache, unspecified; R00.2 Palpitations; R03.0 Elevated blood-pressure reading, without diagnosis of hypertension; R52 Pain, unspecified; R06.02 Shortness of breath; Z20.822 Contact with and (suspected) exposure to COVID-19; Z23 Encounter for immunization
CPT/HCPCS: 93005; 85025 ×2; 80048 ×2; 36415 ×2; 83735; 84100; 80061; 85379; 80076; 84443; 83036; 84484 ×3; 84439; 83690; 83880; 71275; 74175; 71045; 99285; 87811; Q9967; G0378; J1650

== ENCOUNTER 2023-08-13 07:53 | Emergency (ER) | payer BC ==
[2023-08-13 08:36] LABS: Absolute Lymphocytes (CBC) 0.2 K/uL (0.7-4.9); Absolute Monocytes 0.3 K/uL (0.1-1.3); Absolute Neutrophil 9.5 K/uL (1.8-8.0); Basophils % 0.2 % (0-1.3); Eosinophils % 0.1 % (0-4.4); Hematocrit 43.2 % (36.0-45.0); Hemoglobin 14.5 g/dL (12.0-15.0); Lymphocytes % 2.3 % (15.3-44.8); MCH 31.3 pg (27.0-35.0); MCHC 33.6 g/dL (32.0-36.0); MCV 93.2 fL (80-100); MPV 8.8 fL (7.6-11.3); Monocytes % 3.3 % (3.3-12.3); Neutrophils % 94.1 % (41.7-73.7); Platelets 218 thou/uL (152-406); RBC Red Blood Cell Count 4.64 M/uL (3.86-4.86); Red Cell Distribution Width 13.2 % (12.1-15.2)
--- NOTE | 2023-08-13 08:48 | RAD REPORT ---
EXAM DESCRIPTION: US - Abdomen Exam Limited - 08/13/2023 8:41 am CLINICAL HISTORY: ABD PAIN COMPARISON: No comparisons FINDINGS: The gallbladder demonstrates no gallstones. No pericholecystic fluid or gallbladder wall t hickening. The common bile duct is normal measuring 1 mm. The liver demonstrates no findings of intrahepatic biliary dilatation. IMPRESSION: Unremarkable examination.
[2023-08-13] MEDS ORDERED: MORPHINE 4 MG/ML SYR ONE (08:56)
[2023-08-13] MEDS ORDERED: ONDANSETRON 4 MG/2 ML VIAL ONE (08:56)
[2023-08-13] MEDS ORDERED: NA CHLORIDE 0.9% 1,000 ML ONE (08:57)
[2023-08-13] MEDS ORDERED: FAMOTIDINE 20 MG/2 ML VIAL IV ONE (08:57)
[2023-08-13 08:58] LABS: ALT/SGPT 20 U/L (13-56); AST/SGOT 18 U/L (15-37); Albumin 3.9 g/dL (3.4-5.0); Albumin/Globulin Ratio 1.1 (1.1-1.8); Alkaline Phosphatase 50 U/L (45-117); Anion Gap 8.9 mEq/L (5.0-15.0); BUN Blood Urea Nitrogen 17 mg/dL (7-18); Bicarbonate 24 mEq/L (21-32); Bilirubin Total 1.1 mg/dL (0.2-1.0); Globulin 3.5 g/dL (2.3-3.5); Glomerular Filtration Rate 62 ml/min (=/>90); Glucose Level 126 mg/dL (74-106); Lipase 45 U/L (13-75); Potassium 3.9 mEq/L (3.5-5.1); Protein, Total 7.4 g/dL (6.4-8.2); Sodium Level 137 mEq/L (136-145)
[2023-08-13 09:00] LABS: Troponin High Sensitivity < 3.0 pg/mL (<58.9)
--- NOTE | 2023-08-13 09:23 | RAD REPORT ---
EXAM DESCRIPTION: CTAbdomen Pelvis W Contrast - 08/13/2023 9:14 am CLINICAL HISTORY: Abdominal pain. ABD PAIN COMPARISON: Abdomen Exam Limited dated 08/13/2023; Angio Aorta For Dissection dated 05/28/2022 TECHNIQUE: Biphasic CT imaging of the abdomen and pelvis was performed with 100 ml non-ionic IV cont rast. All CT scans are performed using dose optimization technique as appropriate and may include automated exposure control or mA/KV adjustment according to patient size. FINDINGS: The lung bases are clear. The liver contains a small low-density lesion in the right lobe inferiorly and laterally measuring 15 mm with features suggesting small benign hemangioma. Elsewhere, no aggressive liver lesion or intra/ extrahepatic biliary tree dilatation. The spleen, pancreas and adrenal glands are normal. Mild left r enal upper pole caliectasis. No significant hydronephrosis. No bowel obstruction, free air, free fluid or abscess. Moderate stool is present throughout the colon . Normal appendix. No evidence of significant lymphadenopathy. No suspicious bony findings. IMPRESSION: No acute intra-abdominal or pelvic finding.
[2023-08-13 09:50] LABS: Blood Morphology Comment NOT SEEN (NOT SEEN); Platelet Estimate ADEQ; White Blood Cell Scan OK (OK)
--- NOTE | 2023-08-13 11:19 | ER ---
Nurse's Notes [facility] Name: Padmini Leon Age: 53 yrs Sex: Female : 1970 Arrival Date: 08/13/2023 Time: 07:53 Bed 6 Private MD: Diagnosis: Upper abdominal pain, unspecified;Vomiting, unspecified Presentation: 08/12 07:59 Chief complaint: Patient states: upper abd pain X 2 months, is having intermittent iw episodes, this one started last night at 2 am , +n/v. Coronavirus screen: At this time, the client does not indicate any symptoms associated with coronavirus-19. Ebola Screen: Patient negative for fever greater than or equal to 101.5 degrees Fahrenheit, and additional compatible Ebola Virus Disease symptoms Patient denies exposure to infectious person. Patient denies travel to an Ebola-affected area in the 21 days before illness onset. No symptoms or risks identified at this time. Initial Sepsis Screen: Does the patient meet any 2 criteria? No. Patient's initial sepsis screen is negative. Does the patient have a suspected source of infection? No. Patient's initial sepsis screen is negative. Risk Assessment: Do you want to hurt yourself or someone else? Patient reports no desire to harm self or others. Onset of symptoms was August 13, 2023. 07:59 Method Of Arrival: Ambulatory iw 07:59 Acuity: BARTOLO 3 iw Triage Assessment: 08:00 General: Appears in no apparent distress. Behavior is calm, cooperative. Pain: iw Complains of pain in abdomen. GI: Abdomen is non-distended. Historical: - Allergies: 08:01 Codeine; iw - Home Meds: 08:01 None [Active]; iw - PMHx: 08:01 None; iw - PSHx: 08:01 hysterectomy; iw - Immunization history:: Adult Immunizations not up to date. - Infectious Disease History:: Denies. - Social history:: Smoking status: Patient denies any tobacco usage or history of. - Family history:: not pertinent. - Hospitalizations: : No recent hospitalization is reported. Screenin:55 [facility] ED Fall Risk Assessment (Adult) History of falling in the last 3 months, db including since admission No falls in past 3 months (0 pts) Confusion or Disorientation No (0 pts) Intoxicated or Sedated No (0 pts) Impaired Gait No (0 pts) Mobility Assist Device Used No (0 pt) Altered Elimination No (0 pt) Score/Fall Risk Level 0 - 2 = Low Risk Oriented to surroundings, Maintained a safe environment. Abuse screen: Denies threats or abuse. Denies injuries from another. Nutritional screening: No deficits noted. Tuberculosis screening: No symptoms or risk factors identified. Assessment: 08:50 Reassessment: Patient appears in no apparent distress at this time. Patient and/or db family updated on plan of care and expected duration. Pain level reassessed. Patient is alert, oriented x 3, equal unlabored respirations, skin warm/dry/pink. General: Appears in no apparent distress. comfortable, Behavior is calm, cooperative. Pain: Complains of pain in abdomen. Neuro: Level of Consciousness is awake, alert, obeys commands, Oriented to person, place, time, situation, Speech is normal. Respiratory: Airway is patent Respiratory effort is even, unlabored, Respiratory pattern is regular, symmetrical. GI: Abdomen is flat, Bowel sounds present X 4 quads. Abd is soft Reports upper abdominal pain. 11:29 Reassessment: Patient appears in no apparent distress at this time. Patient and/or db family updated on plan of care and expected duration. Pain level reassessed. Patient is alert, oriented x 3, equal unlabored respirations, skin warm/dry/pink. Patient states feeling better. Patient states symptoms have improved. 11:35 Reassessment: Patient appears in no apparent distress at this time. Patient and/or db family updated on plan of care and expected duration. Pain level reassessed. Patient is alert, oriented x 3, equal unlabored respirations, skin warm/dry/pink. Vital Signs: 07:59 BP 106 / 69; Pulse 100; Resp 18; Temp 98.5; Pulse Ox 100% on R/A; Weight 68.04 kg; iw Height 5 ft. 6 in. ; Pain 5/10; 08:53 BP 114 / 76; Pulse 86; Resp 18; Pulse Ox 98% on R/A; db 10:00 BP 108 / 68; Pulse 84; Resp 16; Pulse Ox 100% on R/A; db 11:00 BP 104 / 71; Pulse 75; Resp 18; Temp 98.4; Pulse Ox 100% on R/A; db 07:59 Body Mass Index 24.21 (68.04 kg, 167.64 cm) iw 07:59 Pain Scale: Adult iw ED Course: 07:55 Patient arrived in ED. rg4 07:57 Abelardo Bird MD is Attending Physician. rn 08:01 Triage completed. iw 08:01 Arm band placed on. iw 08:31 Inserted saline lock: 20 gauge in right antecubital area, using aseptic technique. jr12 Blood collected. 08:32 CBC with Diff Sent. jr12 08:32 CMP Sent. jr12 08:32 Lipase Sent. jr12 08:43 US Abdomen Limited In Process Unspecified. EDMS 08:[address] via wheelchair. db 09:06 Aimee Walker, RN is Primary Nurse. nj1 09:14 Patient has correct armband on for positive identification. Bed in low position. Call db light in reach. Side rails up X 1. Pulse ox on. NIBP on. 09:16 CT Abd/Pelvis - IV Contrast Only In Process Unspecified. EDMS 09:33 EKG done, reviewed by Abelardo Bird MD. kn 09:44 Olivia Diaz, RN is Primary Nurse. db 11:18 Cornell Bueno MD is Referral Physician. rn 11:35 Provided Education on: ABDOMINAL PAIN. db 11:35 No provider procedures requiring assistance completed. IV discontinued, intact, db bleeding controlled, No redness/swelling at site. Administered Medications: 08:54 Drug: morphine IVP or IV 4 mg IVP once over 4 mins Route: IVP; Infused Over: 4 mins; db Site: right antecubital; 11:39 Follow up: Response: No adverse reaction db 08:54 Drug: Ondansetron IVP 4 mg IVP once; over 2 minutes Route: IVP; Site: right antecubital;db 11:39 Follow up: Response: No adverse reaction db 08:54 Drug: NS 0.9% IV 1000 ml IV at 1000 ml once Route: IV; Rate: 1000 ml; Site: right db antecubital; 11:39 Follow up: Response: No adverse reaction; IV Status: Completed infusion; IV Intake: db 1000ml 08:54 Drug: Famotidine IVP 20 mg IVP once; dilute with 10 mL 0.9% NaCl; give over 2 minutes db Route: IVP; Site: right antecubital; 11:38 Follow up: Response: No adverse reaction db Medication: 11:35 VIS not applicable for this client. db Intake: :39 IV: 1000ml; Total: 1000ml. db Outcome: 11:18 Discharge ordered by . rn 11:35 Discharged to home ambulatory, with family, db 11:35 Condition: stable 11:35 Discharge instructions given to patient, Instructed on discharge instructions, follow up and referral plans. Prescriptions given X 1, :39 Patient left the ED. db Signatures: Dispatcher [employer] Nancy Zelaya, RN RN Abelardo Salas MD MD rn Garcia, Rubi rg4 Olivia Diaz RN RN db Aimee Walker RN RN nj1 Sameera Snow jr12 FRANCOISE FOX RN RN kn
--- NOTE | 2023-08-13 11:19 | EDPHYS ---
Physician Documentation [facility] Name: Padmini Leon Age: 53 yrs Sex: Female : 1970 Arrival Date: 08/13/2023 Time: 07:53 Bed 6 Private MD: ED Physician Abelardo Bird HPI: 08/12 09:15 This 53 yrs old Female presents to ER via Ambulatory with complaints of Abdominal Pain. rn 09:15 The patient presents with abdominal pain in the epigastric area. Onset: The rn symptoms/episode began/occurred last night. The symptoms do not radiate. Associated signs and symptoms: Pertinent positives: nausea and vomiting, Pertinent negatives: chest pain, diarrhea, fever, hematuria, shortness of breath, vomiting blood. The symptoms are described as achy. Modifying factors: The symptoms are alleviated by nothing, the symptoms are aggravated by touching the area. Severity of pain: At its worst the pain was moderate in the emergency department the pain is unchanged. The patient has experienced similar episodes in the past. The patient has not recently seen a physician. Patient reports epigastric abdominal pain that got worse last night. Has been feeling it intermittently for the last 2 months. Sometimes worse after food or alcohol. No chest pain or shortness of breath. No GI bleeding. No history of gallbladder disease or pancreatitis.. Historical: - Allergies: 08:01 Codeine; iw - Home Meds: 08:01 None [Active]; iw - PMHx: 08:01 None; iw - PSHx: 08:01 hysterectomy; iw - Immunization history:: Adult Immunizations not up to date. - Infectious Disease History:: Denies. - Social history:: Smoking status: Patient denies any tobacco usage or history of. - Family history:: not pertinent. - Hospitalizations: : No recent hospitalization is reported. ROS: 09:15 Constitutional: Negative for fever, chills, and weight loss, Cardiovascular: Negative rn for chest pain, palpitations, and edema, Respiratory: Negative for shortness of breath, cough, wheezing, and pleuritic chest pain, Abdomen/GI: Positive for upper abdominal pain with nausea and vomiting Back: Negative for injury and pain, MS/Extremity: Negative for injury and deformity, Skin: Negative for injury, rash, and discoloration, Neuro: Negative for headache, weakness, numbness, tingling, and seizure, Exam: 09:15 Constitutional: This is a well developed, well nourished patient who is awake, alert, rn appears uncomfortable Head/Face: Normocephalic, atraumatic. Cardiovascular: Regular rate and rhythm. No pulse deficits. Respiratory: No increased work of breathing, no retractions or nasal flaring. Abdomen/GI: Soft, tender epigastric and right upper quadrant. No rebound. Negative [place] MS/ Extremity: Pulses equal, no cyanosis. Neurovascular intact. Full, normal range of motion. Equal circumference. Neuro: Awake and alert, GCS 15 10:17 ECG was reviewed by the Attending Physician. rn Vital Signs: 07:59 BP 106 / 69; Pulse 100; Resp 18; Temp 98.5; Pulse Ox 100% on R/A; Weight 68.04 kg; iw Height 5 ft. 6 in. ; Pain 5/10; 08:53 BP 114 / 76; Pulse 86; Resp 18; Pulse Ox 98% on R/A; db 10:00 BP 108 / 68; Pulse 84; Resp 16; Pulse Ox 100% on R/A; db 11:00 BP 104 / 71; Pulse 75; Resp 18; Temp 98.4; Pulse Ox 100% on R/A; db 07:59 Body Mass Index 24.21 (68.04 kg, 167.64 cm) iw 07:59 Pain Scale: Adult iw MDM: 07:57 Patient medically screened. rn 11:16 Differential diagnosis: appendicitis, bowel obstruction, cholecystitis, Cholelithiasis, rn diverticulitis, gastritis, gastroesophageal reflux disease, non-specific abd pain, pancreatitis, Peptic Ulcer Disease, Perf. Duodenal Ulcer, Perf. Gastric Ulcer. Data reviewed: vital signs, nurses notes, lab test result(s), radiologic studies, CT scan, ultrasound, and as a result, I will discharge patient. 11:17 Test considered but Not performed: Other Details HIDA scan considered but no nuclear rn med available. Counseling: I had a detailed discussion with the patient and/or guardian regarding the historical points, exam findings, and any diagnostic results supporting the discharge/admit diagnosis, lab results, radiology results, the need for outpatient follow up, to return to the emergency department if symptoms worsen or persist or if there are any questions or concerns that arise at home. Response to treatment: the patient's symptoms have markedly improved after treatment, and as a result, I will discharge patient. Special discussion: Based on the patient's Hx, exam, and Dx evaluation, there is no indication for emergent surgery or inpatient Tx. It is understood by the patient/guardian that if the Sx's persist or worsen they need to return immediately for re-evaluation. I discussed with the patient/guardian in detail that at this point there is no indication for admission to the hospital. It is understood, however, that if the symptoms persist or worsen the patient needs to return immediately for re-evaluation. Based on the history and exam findings, there is no indication for further emergent testing or inpatient evaluation. I discussed with the patient/guardian the need to see the tactical air control party manager for further evaluation of the symptoms. ED course: No acute findings and workup today. CT abdomen pelvis and ultrasound no obvious findings. Normal CBD diameter. Patient feels better. Will discharge home with GI follow-up and prescription for antacids. Patient with more than 2 months of intermittent symptoms worse with food and nausea with decreased appetite. Could be gastritis versus esophagitis versus ulceration without bleeding. Needs upper endoscopy to further characterize. Also recommend HIDA scan. I have personally reviewed all of the results, including but not limited to blood tests and imaging deemed necessary to safely discharge this patient at this time. All results given to and printed out for patient. I personally went over all the results with the patient and answered all questions. Patient will follow-up with PCP and or specialist as discussed. Return precautions given and understood.. 08/12 08:14 Order name: CBC with Diff; Complete Time: 10:10 rn 08/12 08:14 Order name: CMP; Complete Time: 09:05 rn 08/12 08:14 Order name: Lipase; Complete Time: 09:05 rn 08/12 08:40 Order name: Troponin High Sensitivity; Complete Time: 09:05 EDMS 08/12 08:40 Order name: CBC Smear Scan; Complete Time: 10:10 EDWV 08/12 08:14 Order name: CT Abd/Pelvis - IV Contrast Only; Complete Time: 09:33 rn 08/12 08:14 Order name: US Abdomen Limited; Complete Time: 08:50 08/12 08:20 Order name: EKG; Complete Time: 08:20 rn 08/12 08:14 Order name: IV Saline Lock; Complete Time: 08:32 rn 08/12 08:14 Order name: Labs collected and sent; Complete Time: 08:32 rn 08/12 08:20 Order name: EKG - Nurse/Tech; Complete Time: 09:44 rn EC:17 Rate is 93 beats/min. Rhythm is regular. QRS [place] is Normal. LA interval is normal. QRS rn interval is normal. QT interval is normal. No Q waves. T waves are Normal. No ST changes noted. Clinical impression: Normal ECG. Interpreted by me. Reviewed by me. Administered Medications: 08:54 Drug: morphine IVP or IV 4 mg IVP once over 4 mins Route: IVP; Infused Over: 4 mins; db Site: right antecubital; 11:39 Follow up: Response: No adverse reaction db 08:54 Drug: Ondansetron IVP 4 mg IVP once; over 2 minutes Route: IVP; Site: right antecubital;db 11:39 Follow up: Response: No adverse reaction db 08:54 Drug: NS 0.9% IV 1000 ml IV at 1000 ml once Route: IV; Rate: 1000 ml; Site: right db antecubital; 11:39 Follow up: Response: No adverse reaction; IV Status: Completed infusion; IV Intake: db 1000ml 08:54 Drug: Famotidine IVP 20 mg IVP once; dilute with 10 mL 0.9% NaCl; give over 2 minutes db Route: IVP; Site: right antecubital; 11:38 Follow up: Response: No adverse reaction db Disposition Summary: 08/13/23 11:18 Discharge Ordered Notes: Location: Home rn Problem: new rn Symptoms: have improved rn Condition: Stable rn Diagnosis - Upper abdominal pain, unspecified rn - Vomiting, unspecified rn Followup: rn - With: Cornell Bueno MD - When: As needed - Reason: Recheck today's complaints, Re-evaluation by your physician Discharge Instructions: - Discharge Summary Sheet rn - Abdominal Pain, Adult rn Forms: - Medication Reconciliation Form rn - Thank You Letter rn - Antibiotic harness tier - Prescription Opioid Use rn - Patient Portal Instructions rn - Leadership Thank You Letter rn Prescriptions: - Protonix 40 mg Oral Tablet - take 1 tablet ORAL route once daily; 30 tablet; Refills: 0, Product Selection rn Permitted Signatures: Dispatcher [employer] Nancy Zleaya Abelardo Mendoza RN, MD MD rn Benton, Danielle, RN RN db Corrections: (The following items were deleted from the chart) 08:14 08:14 CBC+H.LAB.BRZ ordered. EDMS EDMS 08:14 08:14 COMPREHENSIVE METABOLIC PANEL+C.LAB.BRZ ordered. EDMS EDMS 08:14 08:14 LIPASE+C.LAB.BRZ ordered. EDMS EDMS 08:14 08:14 Abdomen Pelvis W Con+CT.RAD.BRZ ordered. EDMS EDMS 08:14 08:14 Abdomen Limited+US.RAD.BRZ ordered. EDMS EDMS 08:40 08:20 Troponin High Sensitivity+C.LAB.BRZ ordered. EDMS EDMS
[2023-08-13 14:30] VITALS: BP 104/71; TEMP 98.4; O2SAT 100
== END 2023-08-13 11:39 | disposition home or self-care (01) ==
LOC: ER 07:53
DX: R10.13 Epigastric pain (principal); R11.10 Vomiting, unspecified; Z88.5 Allergy status to narcotic agent
CPT/HCPCS: 96361; 93005; 85025; 36415; 84484; 83690; 80053; 74177; 76705; 96375; 96374; 99285; Q9967; J2405; J7030